=== PATIENT | female | born 1945 | race African-American/Black ===

== ENCOUNTER 2021-10-24 08:46 | Inpatient (IN) ==
[2021-10-24] MEDS ORDERED: Aspirin 81 MG TAB.CHEW PO ONE (08:51)
[2021-10-24 09:50] LABS: Basophils % 0.5 %; Eosinophils # 0.1 K/mcL (0.0-0.6); Eosinophils % 1.8 %; Hematocrit 42.9 % (35.3-44.9); Hemoglobin 13.5 g/dL (11.5-15.4); Immature Granulocytes % 0.3 % (0-4); Lymphocytes # 2.4 K/mcL (0.6-4.6); Lymphocytes % 30.7 %; Mean Corpuscular HGB Conc 31.5 g/dL (31.6-35.5); Mean Corpuscular Hemoglobin 30.9 pg (28.0-33.3); Mean Corpuscular Volume 98.2 fL (83.0-100.0); Mean Platelet Volume 10.9 fL (9.4-12.4); Monocytes # 0.4 K/mcL (0.0-1.3); Monocytes % 5.5 %; Neutrophils # 4.7 K/mcL (1.6-8.9); Platelet Count 200 K/mcL (140-400); Red Blood Count 4.37 M/mcL (3.82-4.97); Red Cell Distribution Width 13.2 % (11.5-14.5); Segmented Neutrophils % 61.2 %; White Blood Count 7.7 K/mcL (4.3-11.1)
[2021-10-24 09:57] LABS: INR 1.1; Prothrombin Time 12.5 Seconds (9.4-12.1)
[2021-10-24 09:59] LABS: Activated Partial Thrombo Time 39.3 Seconds (26.0-36.0)
[2021-10-24 10:09] LABS: Albumin 3.4 g/dL (3.5-5.7); Bilirubin,Direct 0.1 mg/dL (0.0-0.2); Bilirubin,Indirect 0.5 mg/dL (0.0-1.0); Bilirubin,Total 0.6 mg/dL (0.3-1.0); Globulin 3.5 g/dL (2.4-3.5); Total Protein 6.9 g/dL (6.4-8.9)
[2021-10-24 10:11] LABS: BUN/Creatinine Ratio 16 (6-26); Blood Urea Nitrogen 15 mg/dL (8-23); Calcium 8.9 mg/dL (8.6-10.3); Carbon Dioxide 32 mEq/L (23-29); Chloride 100 mEq/L (98-107); Glucose 105 mg/dL (70-105); Osmolality,Calculated 289 (280-300); Potassium 3.7 mEq/L (3.5-5.1); Sodium 139 mEq/L (136-145); Troponin I < 0.03 ng/mL (< 0.04); eGFR For African Americans > 60 (> 60); eGFR For Non-African Americans 60 (> 60)
[2021-10-24] MEDS ORDERED: Ondansetron 4 MG/2 ML VIAL IVP PRN (11:04)
[2021-10-24] MEDS ORDERED: Morphine Sulfate 2 MG/ML SYRINGE IVP PRN (11:04)
[2021-10-24] MEDS ORDERED: Perflutren Lipid Microsphere 1.3 ML in 0.9 % Sodium Chloride 8.7 ML IVP PRN (11:45)
[2021-10-24] MEDS: Gabapentin 100 MG CAPSULE PO SCH (19:33)
[2021-10-24] MEDS: Nitroglycerin 0.4 MG TAB.SUBL SL PRN ×2 (21:10→23:28)
[2021-10-25 01:28] LABS: Basophils # 0.1 K/mcL (0.0-0.2); Basophils % 0.6 %; Eosinophils # 0.2 K/mcL (0.0-0.6); Eosinophils % 2.6 %; Hemoglobin 11.9 g/dL (11.5-15.4); Immature Granulocytes % 0.3 % (0-4); Lymphocytes # 2.9 K/mcL (0.6-4.6); Mean Corpuscular HGB Conc 31.3 g/dL (31.6-35.5); Mean Corpuscular Hemoglobin 30.8 pg (28.0-33.3); Mean Corpuscular Volume 98.4 fL (83.0-100.0); Mean Platelet Volume 11.3 fL (9.4-12.4); Monocytes # 0.6 K/mcL (0.0-1.3); Monocytes % 6.8 %; Neutrophils # 5.2 K/mcL (1.6-8.9); Platelet Count 204 K/mcL (140-400); Red Blood Count 3.86 M/mcL (3.82-4.97); Red Cell Distribution Width 13.3 % (11.5-14.5); Segmented Neutrophils % 57.7 %; White Blood Count 9.1 K/mcL (4.3-11.1)
[2021-10-25 01:35] LABS: INR 1.1; Prothrombin Time 12.5 Seconds (9.4-12.1)
[2021-10-25 01:47] LABS: Albumin/Globulin Ratio 0.9 (1.1-2.2); Bilirubin,Total 0.5 mg/dL (0.3-1.0); Calcium 8.4 mg/dL (8.6-10.3); Globulin 3.3 g/dL (2.4-3.5); Magnesium 1.7 mg/dL (1.6-2.6); Potassium 3.6 mEq/L (3.5-5.1); Total Protein 6.3 g/dL (6.4-8.9)
[2021-10-25] MEDS ORDERED: Regadenoson 0.4 MG/5 ML SYRINGE IVP ONE (06:35)
[2021-10-25] MEDS ORDERED: 0.9 % Sodium Chloride 1,000 ML IVC SCH (07:45)
[2021-10-25] MEDS: Aspirin 81 MG TAB.CHEW PO SCH (08:02)
[2021-10-25] MEDS: amLODIPine 5 MG TABLET PO SCH (08:03)
[2021-10-25] MEDS: Cholecalciferol (D-3) 1,000 UNIT (25MCG) TABLET PO SCH (08:03)
[2021-10-25] MEDS: Gabapentin 100 MG CAPSULE PO SCH ×2 (08:03→21:33)
[2021-10-25] MEDS: Cyanocobalamin (B-12) 1,000 MCG TABLET PO SCH (08:03)
[2021-10-25] MEDS ORDERED: Furosemide 40 MG TABLET PO SCH (09:00)
[2021-10-25 09:46] LABS: Estimated Average Glucose 100 mg/dl; Hemoglobin A1C 5.1 %
[2021-10-25] MEDS: *HR* Heparin 5,000 UNIT/ML VIAL SQ SCH ×2 (14:39→21:33)
[2021-10-26 05:14] LABS: BUN/Creatinine Ratio 18 (6-26); Blood Urea Nitrogen 16 mg/dL (8-23); Calcium 8.6 mg/dL (8.6-10.3); Carbon Dioxide 30 mEq/L (23-29); Chloride 103 mEq/L (98-107); Glucose 106 mg/dL (70-105); Magnesium 1.8 mg/dL (1.6-2.6); Osmolality,Calculated 288 (280-300); Phosphorous 3.5 mg/dL (2.7-4.5); Potassium 3.9 mEq/L (3.5-5.1); Sodium 138 mEq/L (136-145); eGFR For African Americans > 60 (> 60); eGFR For Non-African Americans > 60 (> 60)
[2021-10-26] MEDS: *HR* Heparin 5,000 UNIT/ML VIAL SQ SCH ×3 (05:54→21:45)
[2021-10-26] MEDS: amLODIPine 5 MG TABLET PO SCH (07:41)
[2021-10-26] MEDS: Gabapentin 100 MG CAPSULE PO SCH ×2 (07:41→21:45)
[2021-10-26] MEDS: Cholecalciferol (D-3) 1,000 UNIT (25MCG) TABLET PO SCH (07:41)
[2021-10-26] MEDS: Aspirin 81 MG TAB.CHEW PO SCH (07:41)
[2021-10-26] MEDS: Cyanocobalamin (B-12) 1,000 MCG TABLET PO SCH (07:42)
[2021-10-27] MEDS: *HR* Heparin 5,000 UNIT/ML VIAL SQ SCH ×3 (05:39→20:28)
[2021-10-27] MEDS: Cyanocobalamin (B-12) 1,000 MCG TABLET PO SCH (09:19)
[2021-10-27] MEDS: Aspirin 81 MG TAB.CHEW PO SCH (09:19)
[2021-10-27] MEDS: Gabapentin 100 MG CAPSULE PO SCH ×2 (09:19→20:28)
[2021-10-27] MEDS: amLODIPine 5 MG TABLET PO SCH (09:19)
[2021-10-27] MEDS: Cholecalciferol (D-3) 1,000 UNIT (25MCG) TABLET PO SCH (09:19)
[2021-10-28 03:33] VITALS: PULSE 61; O2SAT 95
[2021-10-28] MEDS: *HR* Heparin 5,000 UNIT/ML VIAL SQ SCH (05:10)
[2021-10-28 06:45] VITALS: BP 133/77; TEMP 97.7
[2021-10-28] MEDS: amLODIPine 5 MG TABLET PO SCH (08:38)
[2021-10-28] MEDS: Gabapentin 100 MG CAPSULE PO SCH (08:38)
[2021-10-28] MEDS: Aspirin 81 MG TAB.CHEW PO SCH (08:38)
[2021-10-28] MEDS: Cholecalciferol (D-3) 1,000 UNIT (25MCG) TABLET PO SCH (08:38)
[2021-10-28] MEDS: Cyanocobalamin (B-12) 1,000 MCG TABLET PO SCH (08:38)
== END 2021-10-28 11:49 | disposition home health service (06) | DRG 683 ==
LOC: 3BNU 08:46 → EMEROOARM 08:46 → SUATTDRO 11:02 → 3BNU 11:25
PROVIDERS: ADMIT Family Medicine; ATTEND Internal Medicine